=== PATIENT | female | born 1965 | race Caucasian/White ===

== ENCOUNTER → 2019-07-09 08:49 | Day surgery (SDC) | payer BC ==
[~2019-07-09 08:49] MED LIST: Acetaminophen TAB* 325 MG PO PRN; Buffered Lidocaine 1% SYRIN* 1 ML/SYRINGE INTRADERM ONE; DiMENhydriNATE IV* 50 MG/ML VIAL IV PUSH PRN; HYDROmorphone INJ1* 1 MG/ML SYRINGE IV PRN; Lactated Ringers 1000 ML Bag* 1,000 ML IV SCH; Lidocaine 1% w EPI 1:200,000* SDV 30 ML VIAL ONE; Lidocaine 2% PF * 5 ML VIAL ONE; Midazolam* 1 MG/ML 2 ML VIAL (2 MG) ONE; Naloxone* 0.4 MG/ML 1 ML VIAL IV PRN; Propofol* 10 MG/ML 20 ML BTL ONE; Ropivacaine 0.2% * 2 MG/ML VIAL ONE; ceFAZolin 2 GM PREMIX in ORs 2 GM/50 ML BAG ONE; fentaNYL* 50 MCG/ML 2 ML VIAL (100 MCG VIAL) ONE; oxyCODONE TAB* 5 MG TAB PO PRN
[2019-07-09 14:26] VITALS: BP 106/78
--- NOTE | 2019-07-10 22:32 | OP ---
DATE OF OPERATION: 07/09/19 [facility] DATE OF : 65 SURGEON: Henok Coffey MD. CAP INSPECTOR: Honey Arugeta. An central supply assistant was needed for the entirety of the case to help with positioning, retraction, and was utilized throughout all portions of the case due to the patients size ANESTHESIOLOGIST: Dr. Alfonso. ANESTHESIA: General. PRE-OP DIAGNOSIS: Right knee medial meniscal tear and mild chondrosis. POST-OP DIAGNOSIS: Right knee medial and lateral meniscal tears with medial femoral condyle chondrosis. OPERATIVE PROCEDURE: Right knee arthroscopy, partial medial and partial lateral meniscectomy; chondroplasty. COMPLICATIONS: None. ESTIMATED BLOOD LOSS: Minimal. INDICATIONS: Brenda Kimble is a 53-year-old female who has had persistent knee pain and swelling. She has catching base pain. She has failed conservative management and elected to proceed with surgical treatment. Risks and benefits were discussed at length including, but not limited to, bleeding; infection; damage to nerves, vessels, surrounding structures; wound nonhealing; persistent pain; need for further surgery; scarring; stiffness; incomplete relief of symptoms; risks of anesthesia; and risk of DVT. She has elected to proceed. DESCRIPTION OF PROCEDURE: The patient was greeted in the preoperative area by the attending surgeon. Correct extremity was marked and consent was confirmed. The patient was brought back to the operating suite and was placed in the supine position on the operating table, underwent general anesthesia, LMA intubation, after which she was appropriately positioned in the bed. Unsterile tourniquet was placed high on the proximal thigh. The lateral post was positioned. The right leg was then prepped and draped in the usual sterile fashion, beginning with chlorhexidine soap, scrub, and alcohol wipe, and a final prep with ChloraPrep. After appropriate surgical pause indicating side, site, procedure, and administration of antibiotics, the knee was injected intra-articularly with 1% lidocaine with epi. The anterolateral portal was made sharply with an 11- blade. The scope was introduced into the joint. The joint was examined. There was abundant synovitis that was present. There were abundant bands and plica in both the medial and lateral aspect of the knee. This was debrided back using the shaver. There was evidence of chondrosis. This was debrided as well with the shaver. ACL and PCL were intact. The patellofemoral joint had grade 1 to 2 changes. The medial and lateral gutters were intact. The chondrosis was then debrided back using shaver. There was evidence of a root tear of the medial meniscus that was with an unstable flap. This was debrided back using the evan and biters, after which the lateral meniscus was examined. There was evidence of fraying and tearing of the part of the root and the body of the meniscus. There were grade 1 to 2 changes at the lateral compartment. Once the debridement was complete, the knee was thoroughly lavaged. Wound layer was debrided. The wound was copiously irrigated with sterile saline. The portals were closed with 3-0 nylon. Sterile dressings were applied. A Cryo/Cuff was applied. She was awoken from anesthesia and transferred to the PACU in stable condition. POSTOPERATIVE PLAN: She will be weightbearing as tolerated with crutches. She will be discharged on pain medication. DVT prophylaxis was considered but deferred due to no previous personal or family history. I will see the patient back in 10 to 14 days. [id number] #: [id number] MTDD
== END | disposition home or self-care (01) ==
LOC: OR 08:49
PROVIDERS: ATTEND Orthopaedic Surgery
DX: S83.241A Other tear of medial meniscus, current injury, right knee, initial encounter (principal); M17.11 Unilateral primary osteoarthritis, right knee; Z72.0 Tobacco use; I10 Essential (primary) hypertension; J30.2 Other seasonal allergic rhinitis; X58.XXXA Exposure to other specified factors, initial encounter; Y92.9 Unspecified place or not applicable
CPT/HCPCS: J0690; J2001; J2250; J2704; J2795; J3010